=== PATIENT | female | born 1970 | race Caucasian/White ===

== ENCOUNTER → 2023-07-15 06:21 | Day surgery (SDC) | payer BC, SELFPAY | LOC: GI 06:21 | PROVIDERS: ATTENDING PHYSICIAN Internal Medicine; FAMILY PHYSICIAN Nurse Practitioner Family | DX: Z12.11 Encounter for screening for malignant neoplasm of colon (principal); Z53.8 Procedure and treatment not carried out for other reasons | CPT/HCPCS: G0121 ==

== ENCOUNTER → 2023-07-15 18:09 | Outpatient (REF) | payer BC, SELFPAY | LOC: MRI 18:09 | PROVIDERS: ATTENDING PHYSICIAN Ophthalmology; FAMILY PHYSICIAN Nurse Practitioner Family | DX: H46.9 Unspecified optic neuritis (principal) | CPT/HCPCS: 70543; A9575 ==

== ENCOUNTER 2023-10-03 21:40 | Emergency (ER) | payer BC, SELFPAY ==
[2023-10-03 21:51] VITALS: BP 152/94
--- NOTE | 2023-10-03 22:49 | ED.MUSCINJ ---
HPI-Injury
General
Chief Complaint: Fall
Source: patient
Exam Limitations: none
Time Seen by Provider: 10/03/23 22:39
Nursing documentation reviewed up to this point in time: agreed with
Travel History
Have you had any contact with someone who has COVID-19?: No
Do you have any symptoms of coronavirus? Fever > 100 degrees, chills, cough, shortness of breath, sore throat, loss of taste or smell, muscle aches, or headache?: No
History of Present Illness-Injury
Is this injury a work related problem?: No
Is pt an associate of [facility]?: No
Initial Injury comments:
patient states she was trying to remove kayake for her car roof and she fell. Unsure if kayake hit her chest or if she hit chest on ground. Denies hitting her head. Complains of pain to right lat ribs. Injury occurred this afternoon.
Past History
Past History
ED Past Medical History: Cancer (Melanoma) and Hypercholesterolemia
ED Past Surgical History: None
Social History
Tobacco: Non-smoker
Alcohol: Occasional
Personal:
Living: with family
Employment: Employed
Review of Systems
Review of Systems
Allergies reviewed?: Yes
All Other Systems: ROS reviewed and negative except as documented in HPI and ROS
Constitutional: Reports no symptoms
Respiratory: Reports no symptoms
Cardiac: Reports no symptoms
ABD/GI: Reports no symptoms
Musculoskeletal: Reports joint pain (pain to right lat chest)
Skin: Reports no symptoms
Neurological: Reports no symptoms
Psychiatric: Reports no symptoms
Musculoskeletal Injury Exam
Musculoskeletal Injury Exam
Right Anterior Lateral Chest:
Pain with Movement?: Moderate
Tender to palpation?: Moderate
Soft tissue swelling?: None
External deformity and angulation?: None
Joint effusion?: None
Contusion?: Moderate
Hematoma-local bleeding into tissue?: None
Strain- Sprain- Tear (Connective tissue injury)?: Moderate
Crepitus with movement?: No
Joint instability?: No
Malalignment/deformity?: No
Range of motion: Limited
Distal skin color and temperature: normal-warm & good color
Capillary Refill: normal
Normal distal neurovascular exam?: Yes
Phy Exam
General Physical Exam
General Presentation: well appearing and mild distress
General age: appears stated age
General Skin: warm and dry
General Habitus: normal
General Mental: alert
Pulmonary Exam
Pulmonary Exam: no respiratory distress
Gastrointestinal Exam
Gastrointestinal Exam: normal bowel sounds, non tender, soft and no organomegaly
Musculoskeletal Exam
Musculoskeletal Exam: neuro vasc intact
Skin Exam
Skin Exam: normal color, warm/dry and no rash
Psychiatric Exam
Psychiatric Exam: normal mood/affect
Injury Course
Orders/Labs/Results
Orders:
Orders
10/03/23 22:02
Ribs, Right 3 View W/PA Chest [CR Ribs-right 3 Vw W/pa Chest*] Urgent
Comment:
Reason For Exam: injury
*Radiology
Radiology exam reviewed: radiology read reviewed
*Pulse Oximetry
Patient hypoxic: no
*Critical Care Note
Total Time (30-74mins, 75-104mins- exclusive of procedures): Not Applicable
ED Attending Note
-
Portions of this chart may have been created with voice recognition software.� Occasional wrong word or��sound alike� substitutions may have occurred due to the inherent limitations of voice recognition software.
Discharge Plan
Departure
Patient Disposition: Home (Routine Discharge)
Date of Disposition: 10/03/23
Time of Disposition: 22:49
Patient with high blood pressure during this ER visit?: No
Condition: Good
Covid-19: Not Applicable
Discharge Problem:
Fracture of rib
Instructions: Using Cold for Pain, Ibuprofen, Rib Fracture
Prescriptions:
New
hydrocodone-acetaminophen 5-325 mg tablet
1 tab PO Q4H PRN (Reason: Pain) Qty: 10 0RF
No Action
vitamin B complex Tablet
1 tab PO DAILY
zinc 50 mg Tablet
50 mg PO DAILY
cholecalciferol (vitamin D3) 25 mcg (1,000 unit) Capsule
25 mcg PO DAILY
omega-3 fatty acids 500 mg Capsule
500 mg PO DAILY
acetaminophen 325 mg tablet
650 mg PO Q4H PRN (Reason: MILD PAIN)
vancomycin 125 mg capsule
125 mg PO QID 10 Days Qty: 40 0RF
dicyclomine 20 mg tablet
20 mg PO QID PRN (Reason: abdominal pain) Qty: 14 0RF
Activity Restrictions/Additional Instructions:
Follow up with your family doctor next week.
Interventions
Interventions:
*Risk Screen - Suicide Last Done: 10/03/23 21:57
*General Assessment Last Done: 10/03/23 21:57
*Neglect/Abuse Screening Last Done: 10/03/23 21:57
ED- Fall Risk Assessment Last Done: 10/03/23 21:57
*ED COVID-19 Vaccine History Last Done: 10/03/23 21:57
Discharge Date and Time
Print Language: CENTRAL AFR[place]
--- NOTE | 2023-10-03 22:52 | ED.MUSCINJ ---
HPI-Injury
General
Chief Complaint: Fall
Source: patient
Time Seen by Provider: 10/03/23 22:39
Travel History
Have you had any contact with someone who has COVID-19?: No
Do you have any symptoms of coronavirus? Fever > 100 degrees, chills, cough, shortness of breath, sore throat, loss of taste or smell, muscle aches, or headache?: No
Past History
Past History
ED Past Medical History: Cancer (Melanoma) and Hypercholesterolemia
ED Past Surgical History: None
Social History
Tobacco: Non-smoker
Alcohol: Occasional
Personal:
Living: with family
Employment: Employed
Injury Course
Orders/Labs/Results
Orders:
Orders
10/03/23 22:02
Ribs, Right 3 View W/PA Chest [CR Ribs-right 3 Vw W/pa Chest*] Urgent
Comment:
Reason For Exam: injury
ED Attending Note
-
Portions of this chart may have been created with voice recognition software.� Occasional wrong word or��sound alike� substitutions may have occurred due to the inherent limitations of voice recognition software.
Discharge Plan
Departure
Patient Disposition: Home (Routine Discharge)
Date of Disposition: 10/03/23
Time of Disposition: 22:49
Patient with high blood pressure during this ER visit?: No
Condition: Good
Covid-19: Not Applicable
Discharge Problem:
Fracture of rib
Instructions: Using Cold for Pain, Ibuprofen, Rib Fracture
Prescriptions:
New
hydrocodone-acetaminophen 5-325 mg tablet
1 tab PO Q4H PRN (Reason: Pain) Qty: 10 0RF
No Action
vitamin B complex Tablet
1 tab PO DAILY
zinc 50 mg Tablet
50 mg PO DAILY
cholecalciferol (vitamin D3) 25 mcg (1,000 unit) Capsule
25 mcg PO DAILY
omega-3 fatty acids 500 mg Capsule
500 mg PO DAILY
acetaminophen 325 mg tablet
650 mg PO Q4H PRN (Reason: MILD PAIN)
vancomycin 125 mg capsule
125 mg PO QID 10 Days Qty: 40 0RF
dicyclomine 20 mg tablet
20 mg PO QID PRN (Reason: abdominal pain) Qty: 14 0RF
Activity Restrictions/Additional Instructions:
Follow up with your family doctor next week.
Interventions
Interventions:
*Risk Screen - Suicide Last Done: 10/03/23 21:57
*General Assessment Last Done: 10/03/23 21:57
*Neglect/Abuse Screening Last Done: 10/03/23 21:57
ED- Fall Risk Assessment Last Done: 10/03/23 21:57
*ED COVID-19 Vaccine History Last Done: 10/03/23 21:57
*Nursing Disposition Last Done: 10/03/23 23:34
Discharge Date and Time
Discharge Date/Time: 10/03/23 23:35
Print Language: [place]
== END 2023-10-03 23:35 | disposition home or self-care (01) ==
LOC: EMR 21:40
PROVIDERS: EMERGENCY PHYSICIAN Emergency Medicine
DX: R07.89 Other chest pain (principal); E78.00 Pure hypercholesterolemia, unspecified; S22.31XA Fracture of one rib, right side, initial encounter for closed fracture; W19.XXXA Unspecified fall, initial encounter; Z85.820 Personal history of malignant melanoma of skin
CPT/HCPCS: 99283; 71101

== ENCOUNTER → 2024-08-07 07:16 | Outpatient (REF) | payer BC, SELFPAY | LOC: WDC 07:16 | PROVIDERS: ATTENDING PHYSICIAN Nurse Practitioner Family | DX: Z12.31 Encounter for screening mammogram for malignant neoplasm of breast (principal) | CPT/HCPCS: 77063; 77067 ==

== ENCOUNTER → 2025-01-14 15:27 | Outpatient (REF) | payer BC, SELFPAY | LOC: RAD 15:27 | PROVIDERS: ATTENDING PHYSICIAN Physician Assistant Medical; FAMILY PHYSICIAN Nurse Practitioner Family | DX: R50.9 Fever, unspecified (principal) | CPT/HCPCS: 71046 ==